=== PATIENT | male | born 1945 | race Two or more races ===

== ENCOUNTER 2023-03-26 17:52 | Inpatient (IN) | payer MEDICARE, OTHER ==
[~2023-03-26] VITALS: Ht 170.2 cm; Wt 84.4 kg
[2023-03-26] MEDS ORDERED: IPRATROPIUM BROMIDE (0.02%) 0.5MG/2.5ML NEB HHN STA (17:57)
[2023-03-26] MEDS ORDERED: METHYLPREDNISOLONE SOD SUCC 125MG/2ML (ACT-O-VIAL) IV STA (17:57)
[2023-03-26] MEDS ORDERED: ALBUTEROL (0.083%) 2.5MG/3ML NEB HHN STA (17:57)
[2023-03-26] MEDS ORDERED: ASPIRIN 81MG TABLET PO ONE (18:00)
[2023-03-26 18:15] VITALS: RESP 20
[2023-03-26 18:18] LABS: HEMATOCRIT. 34.2 % (42.0-52.0); HEMOGLOBIN. 11.2 g/dL (14.0-18.0); MEAN CORPUSCULAR VOLUME 88.7 fL (80.0-94.0); MEAN PLATELET VOLUME 7.4 fl (7.4-10.4); PLATELET 548 x1000/uL (130-400); RED BLOOD CELL COUNT 3.85 mill/uL (4.7-6.1); RED CELL DISTRIBUTION WIDTH 16.2 % (11.6-14.6)
[2023-03-26 18:24] LABS: CHLORIDE 94 mEq/L (98-107)
[2023-03-26 18:26] LABS: BG BASE EXCESS 2.3 mmol/L (-2.0-2.0); BG CARBOXYHEMOGLOBIN 1.4 % (0.5-1.5); BG DEOXYHEMOGLOBIN 3.6 % (0.0-5.0); BG HCO3 ACT 27.7 mmol/L (22.0-26.0); BG METHEMOGLOBIN 0.3 % (0.0-1.5); BG OXYGEN SATURATION 96.3 % (92.0-98.5); BG OXYHEMOGLOBIN 94.7 % (94.0-97.0); BG PCO2 46.3 mmHg (35.0-45.0); BG PH 7.395 (7.350-7.450); BG PO2 88.4 mmHg (75.0-100.0); BG SAMPLE SITE RIGHT BRACHIAL; BG TOTAL HEMOGLOBIN 11.8 g/dL (12.0-18.0); BG VENT MODE MASK - BIPAP
[2023-03-26 18:36] LABS: INR 1.1; PARTIAL THROMBOPLASTIN TIME 29.3 sec (23.4-31.0); PROTHROMBIN TIME 11.5 sec (9.6-11.0)
[2023-03-26] MEDS ORDERED: VANCOMYCIN 1G PREMIX 200 ML IV ONE (19:00)
[2023-03-26] MEDS ORDERED: PIPERACILLIN/TAZ 3.375G PREMIX 50 ML IV ONE (19:00)
[2023-03-26] MEDS ORDERED: SODIUM CHLORIDE 0.9% 1000ML BAG (SEPSIS BOLUS) IV ONE (19:00)
[2023-03-26 20:12] VITALS: RESP 26
[2023-03-26 20:50] LABS: PLATELET ESTIMATE INCREASED
[2023-03-26 22:18] VITALS: RESP 31
[2023-03-26 22:25] VITALS: BP 120/77; PULSE 79; RESP 48; TEMP 97.4
[2023-03-26 22:30] VITALS: BP 120/77; PULSE 89; RESP 22; TEMP 97.9
[2023-03-27] VITALS (17 sets, daily range): BP systolic 99–125; BP diastolic 50–67; PULSE 61–82; RESP 18–27; TEMP 97.2–97.9
[2023-03-27] MEDS: SODIUM CHLORIDE 0.9% 1,000 ML IV SCH ×2 (01:16→13:32)
[2023-03-27] MEDS ORDERED: METHYLPREDNISOLONE SOD SUCC 40MG VIAL IV SCH ×3 (01:30→11:00)
[2023-03-27] MEDS: IPRATROPIUM/ALBUTEROL 0.5-3(2.5)MG/3ML NEB HHN SCH ×4 (04:26→20:09)
[2023-03-27 05:23] LABS: CHLORIDE 96 mEq/L (98-107)
[2023-03-27 05:48] LABS: HEMATOCRIT. 30.1 % (42.0-52.0); HEMOGLOBIN. 10.4 g/dL (14.0-18.0); MEAN CORPUSCULAR HEMOGLOBIN 30.5 pg (28.0-32.0); MEAN CORPUSCULAR VOLUME 88.7 fL (80.0-94.0); MEAN PLATELET VOLUME 7.5 fl (7.4-10.4); PLATELET 494 x1000/uL (130-400); RED CELL DISTRIBUTION WIDTH 15.9 % (11.6-14.6)
[2023-03-27 05:49] LABS: HEPATITIS B SURFACE ANTIGEN NEGATIVE
[2023-03-27] MEDS: PANTOPRAZOLE SODIUM 40 MG/VIAL IV SCH (09:15)
[2023-03-27] MEDS: ENOXAPARIN 40MG/0.4ML SYR SUBCUT SCH (09:16)
[2023-03-27 09:30] LABS: BG BASE EXCESS 1.5 mmol/L (-2.0-2.0); BG CARBOXYHEMOGLOBIN 1.5 % (0.5-1.5); BG DEOXYHEMOGLOBIN 3.8 % (0.0-5.0); BG FRACTION INSPIRED OXYGEN 50; BG HCO3 ACT 25.6 mmol/L (22.0-26.0); BG METHEMOGLOBIN 0.3 % (0.0-1.5); BG OXYGEN SATURATION 96.1 % (92.0-98.5); BG OXYHEMOGLOBIN 94.4 % (94.0-97.0); BG PCO2 38.3 mmHg (35.0-45.0); BG PH 7.443 (7.350-7.450); BG PO2 83.4 mmHg (75.0-100.0); BG SAMPLE SITE RIGHT BRACHIAL; BG TOTAL HEMOGLOBIN 10.7 g/dL (12.0-18.0); BG VENT MODE MASK - BIPAP
[2023-03-27] MEDS ORDERED: ONDANSETRON HCL 4MG/2ML INJ IV PRN (10:30)
[2023-03-27] MEDS ORDERED: DEXTROSE 50% WATER 50ML SYRINGE IV PRN (10:30)
[2023-03-27] MEDS ORDERED: IPRATROPIUM/ALBUTEROL 0.5-3(2.5)MG/3ML NEB HHN PRN (10:30)
[2023-03-27] MEDS ORDERED: ACETAMINOPHEN 325MG TABLET PO PRN ×2 (10:30)
[2023-03-27] MEDS ORDERED: DOCUSATE SODIUM 100MG CAPSULE PO PRN (10:30)
[2023-03-27] MEDS: AZITHROMYCIN 500 MG in DEXT 5% WATER 250 ML IV SCH (11:58)
[2023-03-27] MEDS: BLOOD SUGAR DIAGNOSTIC STRIP TEST SCH ×3 (12:26→20:43)
[2023-03-27] MEDS: INSULIN LISPRO 100 UNITS/ML SUBCUT SCH ×3 (12:29→21:37)
[2023-03-27] MEDS: METHYLPREDNISOLONE SOD SUCC 40MG VIAL IV SCH ×2 (13:32→21:37)
[2023-03-28] VITALS (14 sets, daily range): BP systolic 109–134; BP diastolic 54–63; PULSE 60–92; RESP 17–26; TEMP 97.4–98.4
[2023-03-28 01:42] LABS: CREATINE KINASE 9 IU/L (39-308); CREATINE KINASE MB FRACTION < 1.0 ng/mL (0.5-3.6)
[2023-03-28 01:59] LABS: PLATELET ESTIMATE NORMAL
[2023-03-28] MEDS: IPRATROPIUM/ALBUTEROL 0.5-3(2.5)MG/3ML NEB HHN SCH ×4 (02:08→20:52)
[2023-03-28] MEDS: SODIUM CHLORIDE 0.9% 1,000 ML IV SCH ×2 (02:48→16:49)
[2023-03-28] MEDS: METHYLPREDNISOLONE SOD SUCC 40MG VIAL IV SCH ×3 (04:47→21:21)
[2023-03-28] MEDS: BLOOD SUGAR DIAGNOSTIC STRIP TEST SCH ×4 (07:30→21:00)
[2023-03-28] MEDS: INSULIN LISPRO 100 UNITS/ML SUBCUT SCH ×4 (08:00→21:33)
[2023-03-28] MEDS: PANTOPRAZOLE SODIUM 40 MG/VIAL IV SCH (08:52)
[2023-03-28] MEDS: ENOXAPARIN 40MG/0.4ML SYR SUBCUT SCH (08:52)
[2023-03-28 10:24] LABS: BG BASE EXCESS 1.5 mmol/L (-2.0-2.0); BG DEOXYHEMOGLOBIN 9.7 % (0.0-5.0); BG FRACTION INSPIRED OXYGEN 50; BG HCO3 ACT 25.1 mmol/L (22.0-26.0); BG METHEMOGLOBIN 0.3 % (0.0-1.5); BG OXYGEN SATURATION 90.2 % (92.0-98.5); BG PCO2 35.9 mmHg (35.0-45.0); BG PH 7.463 (7.350-7.450); BG PO2 58.7 mmHg (75.0-100.0); BG SAMPLE SITE LEFT RADIAL; BG TOTAL HEMOGLOBIN 11.3 g/dL (12.0-18.0); BG TOTAL RESPIRATORY RATE 18 b/min; BG VENT MODE MASK - BIPAP
[2023-03-28] MEDS: AZITHROMYCIN 500 MG in DEXT 5% WATER 250 ML IV SCH (11:30)
[2023-03-28 12:12] LABS: HEMATOCRIT. 33.7 % (42.0-52.0); HEMOGLOBIN. 10.8 g/dL (14.0-18.0); MEAN CORPUSCULAR HEMOGLOBIN 28.9 pg (28.0-32.0); MEAN CORPUSCULAR VOLUME 90.1 fL (80.0-94.0); MEAN PLATELET VOLUME 7.6 fl (7.4-10.4); PLATELET 628 x1000/uL (130-400); RED BLOOD CELL COUNT 3.74 mill/uL (4.7-6.1); RED CELL DISTRIBUTION WIDTH 16.5 % (11.6-14.6)
[2023-03-28 12:23] LABS: CHLORIDE 101 mEq/L (98-107)
[2023-03-28 15:28] LABS: PLATELET ESTIMATE INCREASED
[2023-03-29] VITALS (17 sets, daily range): BP systolic 114–136; BP diastolic 58–69; PULSE 58–70; RESP 18–28; TEMP 98–98.4; O2SAT 91
[2023-03-29] MEDS: IPRATROPIUM/ALBUTEROL 0.5-3(2.5)MG/3ML NEB HHN SCH ×4 (01:27→20:46)
[2023-03-29] MEDS: METHYLPREDNISOLONE SOD SUCC 40MG VIAL IV SCH ×3 (06:16→23:07)
[2023-03-29] MEDS: SODIUM CHLORIDE 0.9% 1,000 ML IV SCH ×2 (06:17→23:05)
[2023-03-29] MEDS: BLOOD SUGAR DIAGNOSTIC STRIP TEST SCH ×4 (07:30→21:00)
[2023-03-29] MEDS: INSULIN LISPRO 100 UNITS/ML SUBCUT SCH ×4 (08:00→23:36)
[2023-03-29 08:51] LABS: BG BASE EXCESS 2.5 mmol/L (-2.0-2.0); BG CARBOXYHEMOGLOBIN 0.3 % (0.5-1.5); BG DEOXYHEMOGLOBIN 4.3 % (0.0-5.0); BG FRACTION INSPIRED OXYGEN 50; BG HCO3 ACT 26.2 mmol/L (22.0-26.0); BG METHEMOGLOBIN 0.2 % (0.0-1.5); BG OXYGEN SATURATION 95.7 % (92.0-98.5); BG OXYHEMOGLOBIN 95.2 % (94.0-97.0); BG PCO2 37.3 mmHg (35.0-45.0); BG PH 7.465 (7.350-7.450); BG SAMPLE SITE RIGHT BRACHIAL; BG TOTAL HEMOGLOBIN 10.8 g/dL (12.0-18.0); BG TOTAL RESPIRATORY RATE 21 b/min; BG VENT MODE MASK - BIPAP
[2023-03-29] MEDS: PANTOPRAZOLE SODIUM 40 MG/VIAL IV SCH (09:05)
[2023-03-29] MEDS: ENOXAPARIN 40MG/0.4ML SYR SUBCUT SCH (09:05)
[2023-03-29 13:06] LABS: HEMATOCRIT. 30.7 % (42.0-52.0); MEAN CORPUSCULAR HEMOGLOBIN 28.6 pg (28.0-32.0); MEAN CORPUSCULAR VOLUME 87.8 fL (80.0-94.0); MEAN PLATELET VOLUME 7.5 fl (7.4-10.4); PLATELET 590 x1000/uL (130-400); RED CELL DISTRIBUTION WIDTH 16.3 % (11.6-14.6)
[2023-03-29 13:15] LABS: CHLORIDE 100 mEq/L (98-107)
[2023-03-29] MEDS: AZITHROMYCIN 500 MG in DEXT 5% WATER 250 ML IV SCH (16:44)
[2023-03-30] VITALS (22 sets, daily range): BP systolic 111–160; BP diastolic 49–75; PULSE 60–99; RESP 17–28; TEMP 97.7–98.3; O2SAT 91–94
[2023-03-30] MEDS: IPRATROPIUM/ALBUTEROL 0.5-3(2.5)MG/3ML NEB HHN SCH ×4 (02:31→19:59)
[2023-03-30] MEDS: METHYLPREDNISOLONE SOD SUCC 40MG VIAL IV SCH ×3 (07:17→22:13)
[2023-03-30] MEDS: BLOOD SUGAR DIAGNOSTIC STRIP TEST SCH ×4 (07:30→21:00)
[2023-03-30] MEDS: INSULIN LISPRO 100 UNITS/ML SUBCUT SCH ×5 (08:00→22:22)
[2023-03-30] MEDS: FAMOTIDINE 20MG/2ML VIAL IV SCH ×2 (09:28→22:11)
[2023-03-30] MEDS: ENOXAPARIN 40MG/0.4ML SYR SUBCUT SCH (09:28)
[2023-03-30] MEDS: SODIUM CHLORIDE 0.9% 1,000 ML IV SCH ×2 (09:33→22:14)
[2023-03-30] MEDS: AZITHROMYCIN 500 MG in DEXT 5% WATER 250 ML IV SCH (09:33)
[2023-03-30 10:38] LABS: PLATELET ESTIMATE INCREASED
[2023-03-31] VITALS (80 sets, daily range): BP systolic 58–149; BP diastolic 40–92; PULSE 66–135; RESP 13–47; TEMP 97.4–99.8; O2SAT 93
[2023-03-31] MEDS: IPRATROPIUM/ALBUTEROL 0.5-3(2.5)MG/3ML NEB HHN SCH ×4 (01:51→20:30)
[2023-03-31] MEDS: METHYLPREDNISOLONE SOD SUCC 40MG VIAL IV SCH ×3 (06:00→21:34)
[2023-03-31] MEDS ORDERED: HALOPERIDOL LACTATE 5MG/ML VIAL IM NR (06:15)
[2023-03-31 06:32] LABS: BG BASE EXCESS -7.3 mmol/L (-2.0-2.0); BG CARBOXYHEMOGLOBIN 1.1 % (0.5-1.5); BG DEOXYHEMOGLOBIN 21.5 % (0.0-5.0); BG FRACTION INSPIRED OXYGEN 10102; BG HCO3 ACT 26.9 mmol/L (22.0-26.0); BG METHEMOGLOBIN 0.3 % (0.0-1.5); BG OXYGEN SATURATION 78.2 % (92.0-98.5); BG OXYHEMOGLOBIN 77.1 % (94.0-97.0); BG PCO2 119.6 mmHg (35.0-45.0); BG PO2 66.8 mmHg (75.0-100.0); BG TOTAL HEMOGLOBIN 12.4 g/dL (12.0-18.0); BG VENT MODE MASK - BIPAP
[2023-03-31] MEDS: BLOOD SUGAR DIAGNOSTIC STRIP TEST SCH ×4 (07:46→21:32)
[2023-03-31] MEDS: INSULIN LISPRO 100 UNITS/ML SUBCUT SCH ×4 (07:59→21:31)
[2023-03-31 09:39] LABS: BG BASE EXCESS -4.5 mmol/L (-2.0-2.0); BG DEOXYHEMOGLOBIN 16.7 % (0.0-5.0); BG FRACTION INSPIRED OXYGEN 100; BG HCO3 ACT 26.6 mmol/L (22.0-26.0); BG METHEMOGLOBIN 0.3 % (0.0-1.5); BG OXYGEN SATURATION 83.1 % (92.0-98.5); BG PH 7.093 (7.350-7.450); BG SAMPLE SITE RIGHT BRACHIAL; BG TOTAL HEMOGLOBIN 10.6 g/dL (12.0-18.0); BG VENT MODE MASK - BIPAP
[2023-03-31] MEDS: PHENYLEPHRINE 100 MG in DEXT 5% WATER 240 ML IV PRN ×2 (10:39→21:02)
[2023-03-31] MEDS: FAMOTIDINE 20MG/2ML VIAL IV SCH ×2 (11:01→21:19)
[2023-03-31] MEDS: SODIUM CHLORIDE 0.9% 1,000 ML IV SCH (11:02)
[2023-03-31] MEDS: ENOXAPARIN 40MG/0.4ML SYR SUBCUT SCH (11:02)
[2023-03-31 12:07] LABS: BG BASE EXCESS -2.1 mmol/L (-2.0-2.0); BG CARBOXYHEMOGLOBIN 0.9 % (0.5-1.5); BG DEOXYHEMOGLOBIN 11.1 % (0.0-5.0); BG FRACTION INSPIRED OXYGEN 100; BG HCO3 ACT 28.8 mmol/L (22.0-26.0); BG METHEMOGLOBIN 0.1 % (0.0-1.5); BG OXYGEN SATURATION 88.8 % (92.0-98.5); BG OXYHEMOGLOBIN 87.9 % (94.0-97.0); BG PCO2 84.7 mmHg (35.0-45.0); BG PO2 69.8 mmHg (75.0-100.0); BG SAMPLE SITE RIGHT BRACHIAL; BG TOTAL HEMOGLOBIN 13.2 g/dL (12.0-18.0); BG VENT MODE VENT - AC
[2023-03-31 12:11] LABS: MEAN CORPUSCULAR HEMOGLOBIN 28.3 pg (28.0-32.0); MEAN CORPUSCULAR VOLUME 90.4 fL (80.0-94.0); MEAN PLATELET VOLUME 6.9 fl (7.4-10.4); PLATELET 761 x1000/uL (130-400); RED BLOOD CELL COUNT 4.15 mill/uL (4.7-6.1); RED CELL DISTRIBUTION WIDTH 16.6 % (11.6-14.6)
[2023-03-31 12:17] LABS: CHLORIDE 101 mEq/L (98-107)
[2023-03-31 12:19] LABS: HEMATOCRIT. 37.6 % (42.0-52.0); HEMOGLOBIN. 11.7 g/dL (14.0-18.0)
[2023-03-31] MEDS ORDERED: SULFAMETHOXAZOLE/TRIMETHOPRIM 800/160MG TABLET PO SCH (13:00)
[2023-03-31] MEDS: AZITHROMYCIN 500 MG in DEXT 5% WATER 250 ML IV SCH (13:10)
[2023-03-31 14:11] LABS: PLATELET ESTIMATE MARKEDLY INCREASED
[2023-03-31] MEDS: SODIUM BICARBONATE 100 MEQ in SODIUM CHLORIDE 0.9% 1,000 ML IV SCH (15:03)
[2023-03-31 16:00] LABS: BG BASE EXCESS -11.2 mmol/L (-2.0-2.0); BG CARBOXYHEMOGLOBIN 1.5 % (0.5-1.5); BG DEOXYHEMOGLOBIN 18.3 % (0.0-5.0); BG FRACTION INSPIRED OXYGEN 100; BG HCO3 ACT 16.2 mmol/L (22.0-26.0); BG METHEMOGLOBIN 0.3 % (0.0-1.5); BG OXYGEN SATURATION 81.4 % (92.0-98.5); BG OXYHEMOGLOBIN 79.9 % (94.0-97.0); BG PCO2 41.9 mmHg (35.0-45.0); BG PH 7.205 (7.350-7.450); BG PO2 51.1 mmHg (75.0-100.0); BG SAMPLE SITE RIGHT BRACHIAL; BG TOTAL HEMOGLOBIN 13.4 g/dL (12.0-18.0); BG VENT MODE VENT - AC
[2023-03-31] MEDS ORDERED: FUROSEMIDE 20MG/2ML VIAL IVP NR (16:00)
[2023-03-31] MEDS: MEROPENEM 500 MG in SODIUM CHLORIDE 0.9% 50 ML IV SCH (17:04)
[2023-03-31] MEDS ORDERED: VANCOMYCIN 1500MG in DEXTROSE 5% WATER 250ML IV NR (18:00)
[2023-03-31] MEDS: INSULIN GLARGINE 100 UNITS/ML SUBCUT SCH (21:32)
[2023-04-01] VITALS (99 sets, daily range): BP systolic 79–145; BP diastolic 23–85; PULSE 72–95; RESP 13–45; TEMP 97.6–98
[2023-04-01] MEDS: IPRATROPIUM/ALBUTEROL 0.5-3(2.5)MG/3ML NEB HHN SCH ×5 (01:30→21:12)
[2023-04-01] MEDS: MEROPENEM 500 MG in SODIUM CHLORIDE 0.9% 50 ML IV SCH (02:02)
[2023-04-01] MEDS: SODIUM BICARBONATE 100 MEQ in SODIUM CHLORIDE 0.9% 1,000 ML IV SCH ×2 (02:29→12:19)
[2023-04-01] MEDS: PHENYLEPHRINE 100 MG in DEXT 5% WATER 240 ML IV PRN ×2 (03:51→11:46)
[2023-04-01] MEDS: METHYLPREDNISOLONE SOD SUCC 40MG VIAL IV SCH ×3 (06:00→22:05)
[2023-04-01] MEDS: BLOOD SUGAR DIAGNOSTIC STRIP TEST SCH ×4 (06:30→21:56)
[2023-04-01] MEDS: INSULIN LISPRO 100 UNITS/ML SUBCUT SCH ×4 (07:08→21:56)
[2023-04-01 07:58] LABS: BG BASE EXCESS -4.5 mmol/L (-2.0-2.0); BG CARBOXYHEMOGLOBIN 1.4 % (0.5-1.5); BG DEOXYHEMOGLOBIN 4.1 % (0.0-5.0); BG FRACTION INSPIRED OXYGEN 100; BG HCO3 ACT 22.7 mmol/L (22.0-26.0); BG METHEMOGLOBIN 0.3 % (0.0-1.5); BG OXYGEN SATURATION 95.8 % (92.0-98.5); BG OXYHEMOGLOBIN 94.2 % (94.0-97.0); BG PCO2 50.7 mmHg (35.0-45.0); BG PH 7.269 (7.350-7.450); BG PO2 87.7 mmHg (75.0-100.0); BG SAMPLE SITE LEFT BRACHIAL; BG TOTAL HEMOGLOBIN 12.2 g/dL (12.0-18.0); BG VENT MODE VENT - AC
[2023-04-01] MEDS: ENOXAPARIN 40MG/0.4ML SYR SUBCUT SCH (09:23)
[2023-04-01] MEDS: FAMOTIDINE 20MG/2ML VIAL IV SCH ×2 (09:23→20:38)
[2023-04-01] MEDS: INSULIN GLARGINE 100 UNITS/ML SUBCUT SCH ×2 (09:26→22:09)
[2023-04-01] MEDS ORDERED: MEROPENEM 1000MG in NORMAL SALINE 100ML IV SCH (10:00)
[2023-04-01 10:20] LABS: HEMATOCRIT 35.4 % (42.0-52.0); HEMOGLOBIN 11.2 g/dL (14.0-18.0); MEAN CORPUSCULAR HEMOGLOBIN 28.4 pg (28.0-32.0); MEAN CORPUSCULAR VOLUME 89.9 fL (80.0-94.0); PLATELET 538 x1000/uL (130-400); RED BLOOD CELL COUNT 3.94 mill/uL (4.7-6.1); RED CELL DISTRIBUTION WIDTH 16.5 % (11.6-14.6)
[2023-04-01] MEDS ORDERED: VANCOMYCIN 1.25GM PMX (XELLIA) 250 ML IV SCH (12:00)
[2023-04-01] MEDS ORDERED: VANCOMYCIN 1G PREMIX 200 ML IV SCH (12:00)
[2023-04-01] MEDS ORDERED: SODIUM POLYSTYRENE SULFONATE 15 G/60 ML BOT PO NR (12:00)
[2023-04-01] MEDS ORDERED: SODIUM POLYSTYRENE SULFONATE 15 G/60 ML BOT PO ONE (12:00)
[2023-04-01] MEDS: ACETYLCYSTEINE 200MG/ML 20% VIAL 4ML INH SCH ×2 (15:29→22:07)
[2023-04-01 18:33] LABS: CLARITY URINE TURBID (CLEAR); COLOR URINE DARK YELLOW (YELLOW); KETONES URINE TRACE (NEGATIVE); LEUKOCYTE ESTERASE URINE 2+ (NEGATIVE); NITRITE URINE NEGATIVE (NEGATIVE); OCCULT BLOOD URINE 3+ (NEGATIVE); PROTEIN URINE 1+ (NEGATIVE); SPECIFIC GRAVITY URINE 1.016 (1.005-1.030)
[2023-04-01] MEDS: MEROPENEM 1000MG in NORMAL SALINE 100ML IV SCH (20:37)
[2023-04-02] VITALS (106 sets, daily range): BP systolic 81–176; BP diastolic 52–91; PULSE 64–107; RESP 5–36; TEMP 97.4–98.4
[2023-04-02] MEDS: SODIUM BICARBONATE 100 MEQ in SODIUM CHLORIDE 0.9% 1,000 ML IV SCH ×3 (00:45→22:27)
[2023-04-02] MEDS: IPRATROPIUM/ALBUTEROL 0.5-3(2.5)MG/3ML NEB HHN SCH ×4 (01:22→19:44)
[2023-04-02] MEDS: ACETYLCYSTEINE 200MG/ML 20% VIAL 4ML INH SCH ×2 (01:25→08:16)
[2023-04-02] MEDS: METHYLPREDNISOLONE SOD SUCC 40MG VIAL IV SCH ×3 (05:21→22:26)
[2023-04-02] MEDS: INSULIN LISPRO 100 UNITS/ML SUBCUT SCH ×4 (05:22→21:02)
[2023-04-02 05:40] LABS: HEMATOCRIT. 31.2 % (42.0-52.0); HEMOGLOBIN. 9.9 g/dL (14.0-18.0); MEAN CORPUSCULAR HEMOGLOBIN 28.2 pg (28.0-32.0); MEAN CORPUSCULAR VOLUME 88.7 fL (80.0-94.0); MEAN PLATELET VOLUME 7.4 fl (7.4-10.4); PLATELET 348 x1000/uL (130-400); RED BLOOD CELL COUNT 3.52 mill/uL (4.7-6.1); RED CELL DISTRIBUTION WIDTH 16.6 % (11.6-14.6)
[2023-04-02 05:50] LABS: VANCOMYCIN TROUGH 23.5 ug/mL (5.0-10.0)
[2023-04-02] MEDS: BLOOD SUGAR DIAGNOSTIC STRIP TEST SCH ×4 (06:30→21:02)
[2023-04-02] MEDS: FAMOTIDINE 20MG/2ML VIAL IV SCH (08:43)
[2023-04-02] MEDS: ENOXAPARIN 40MG/0.4ML SYR SUBCUT SCH (08:43)
[2023-04-02] MEDS: MEROPENEM 1000MG in NORMAL SALINE 100ML IV SCH ×2 (08:43→20:59)
[2023-04-02 08:51] LABS: BG BASE EXCESS 2.7 mmol/L (-2.0-2.0); BG CARBOXYHEMOGLOBIN 0.7 % (0.5-1.5); BG DEOXYHEMOGLOBIN 0.8 % (0.0-5.0); BG FRACTION INSPIRED OXYGEN 100; BG HCO3 ACT 26.2 mmol/L (22.0-26.0); BG METHEMOGLOBIN 0.3 % (0.0-1.5); BG OXYGEN SATURATION 99.2 % (92.0-98.5); BG OXYHEMOGLOBIN 98.2 % (94.0-97.0); BG PCO2 36.5 mmHg (35.0-45.0); BG PH 7.474 (7.350-7.450); BG PO2 199.5 mmHg (75.0-100.0); BG SAMPLE SITE RIGHT BRACHIAL; BG TOTAL HEMOGLOBIN 11.1 g/dL (12.0-18.0); BG VENT MODE VENT - AC
[2023-04-02 09:44] LABS: PLATELET ESTIMATE NORMAL
[2023-04-02] MEDS: INSULIN GLARGINE 100 UNITS/ML SUBCUT SCH ×2 (09:54→22:25)
[2023-04-02] MEDS: LORAZEPAM 2MG/ML CPJ IV PRN (14:54)
[2023-04-02] MEDS: PHENYLEPHRINE 100 MG in DEXT 5% WATER 240 ML IV PRN (23:16)
[2023-04-03] VITALS (101 sets, daily range): BP systolic 93–181; BP diastolic 56–106; PULSE 65–139; RESP 7–34; TEMP 97.8–98.7
[2023-04-03] MEDS: ACETYLCYSTEINE 100MG/ML 10% VIAL 4ML INH SCH ×4 (01:06→20:20)
[2023-04-03] MEDS: IPRATROPIUM/ALBUTEROL 0.5-3(2.5)MG/3ML NEB HHN SCH ×4 (01:07→20:19)
[2023-04-03] MEDS: BLOOD SUGAR DIAGNOSTIC STRIP TEST SCH ×4 (06:35→20:30)
[2023-04-03] MEDS: METHYLPREDNISOLONE SOD SUCC 40MG VIAL IV SCH ×3 (06:36→22:13)
[2023-04-03] MEDS: ENOXAPARIN 40MG/0.4ML SYR SUBCUT SCH (08:59)
[2023-04-03] MEDS: INSULIN LISPRO 100 UNITS/ML SUBCUT SCH ×4 (09:00→20:31)
[2023-04-03] MEDS: SODIUM BICARBONATE 100 MEQ in SODIUM CHLORIDE 0.9% 1,000 ML IV SCH ×2 (09:05→20:30)
[2023-04-03] MEDS: MEROPENEM 1000MG in NORMAL SALINE 100ML IV SCH ×2 (09:34→20:30)
[2023-04-03 09:43] LABS: HEMOGLOBIN. 10.2 g/dL (14.0-18.0); MEAN CORPUSCULAR HEMOGLOBIN 28.8 pg (28.0-32.0); MEAN CORPUSCULAR VOLUME 87.5 fL (80.0-94.0); MEAN PLATELET VOLUME 7.6 fl (7.4-10.4); PLATELET 338 x1000/uL (130-400); RED BLOOD CELL COUNT 3.54 mill/uL (4.7-6.1); RED CELL DISTRIBUTION WIDTH 16.2 % (11.6-14.6)
[2023-04-03] MEDS: INSULIN GLARGINE 100 UNITS/ML SUBCUT SCH ×2 (10:41→22:14)
[2023-04-03 10:56] LABS: BG BASE EXCESS 9.2 mmol/L (-2.0-2.0); BG CARBOXYHEMOGLOBIN 0.2 % (0.5-1.5); BG DEOXYHEMOGLOBIN 2.5 % (0.0-5.0); BG FRACTION INSPIRED OXYGEN 60; BG HCO3 ACT 32.6 mmol/L (22.0-26.0); BG METHEMOGLOBIN 0.3 % (0.0-1.5); BG OXYGEN SATURATION 97.5 % (92.0-98.5); BG PCO2 39.4 mmHg (35.0-45.0); BG PH 7.535 (7.350-7.450); BG PO2 100.1 mmHg (75.0-100.0); BG SAMPLE SITE RIGHT RADIAL; BG VENT MODE VENT - AC
[2023-04-03] MEDS ORDERED: VANCOMYCIN 750MG PREMIX 150 ML IV SCH (11:00)
[2023-04-03 11:43] LABS: PLATELET ESTIMATE NORMAL
[2023-04-03] MEDS ORDERED: LIDOCAINE HCL 1% 10 MG/ML 10ML VIAL ONE (13:20)
[2023-04-03 15:24] LABS: BG BASE EXCESS 5.3 mmol/L (-2.0-2.0); BG DEOXYHEMOGLOBIN 3.7 % (0.0-5.0); BG FRACTION INSPIRED OXYGEN 50; BG HCO3 ACT 31.8 mmol/L (22.0-26.0); BG METHEMOGLOBIN 0.3 % (0.0-1.5); BG OXYGEN SATURATION 96.3 % (92.0-98.5); BG PCO2 55.4 mmHg (35.0-45.0); BG PH 7.377 (7.350-7.450); BG PO2 93.3 mmHg (75.0-100.0); BG SAMPLE SITE RIGHT RADIAL; BG TOTAL HEMOGLOBIN 12.2 g/dL (12.0-18.0); BG VENT MODE VENT - AC
[2023-04-03] MEDS: LORAZEPAM 2MG/ML CPJ IV PRN (16:03)
[2023-04-03] MEDS ORDERED: DILTIAZEM HCL 5MG/ML 5ML VIAL IV NR (16:45)
[2023-04-03 17:27] LABS: BG BASE EXCESS 3.9 mmol/L (-2.0-2.0); BG CARBOXYHEMOGLOBIN 0.7 % (0.5-1.5); BG DEOXYHEMOGLOBIN 7.3 % (0.0-5.0); BG FRACTION INSPIRED OXYGEN 50; BG HCO3 ACT 31.4 mmol/L (22.0-26.0); BG METHEMOGLOBIN 0.3 % (0.0-1.5); BG OXYGEN SATURATION 92.6 % (92.0-98.5); BG OXYHEMOGLOBIN 91.7 % (94.0-97.0); BG PCO2 61.8 mmHg (35.0-45.0); BG PH 7.324 (7.350-7.450); BG SAMPLE SITE RIGHT RADIAL; BG TOTAL HEMOGLOBIN 12.2 g/dL (12.0-18.0); BG VENT MODE VENT - AC
[2023-04-04] VITALS (89 sets, daily range): BP systolic 127–165; BP diastolic 67–96; PULSE 69–99; RESP 17–33; TEMP 97–98
[2023-04-04] MEDS: BLOOD SUGAR DIAGNOSTIC STRIP TEST SCH ×4 (06:01→21:30)
[2023-04-04] MEDS: SODIUM BICARBONATE 100 MEQ in SODIUM CHLORIDE 0.9% 1,000 ML IV SCH ×2 (06:01→18:05)
[2023-04-04] MEDS: INSULIN LISPRO 100 UNITS/ML SUBCUT SCH ×4 (06:04→21:32)
[2023-04-04] MEDS: METHYLPREDNISOLONE SOD SUCC 40MG VIAL IV SCH ×3 (06:05→21:30)
[2023-04-04 06:54] LABS: HEMATOCRIT. 33.9 % (42.0-52.0); HEMOGLOBIN. 11.1 g/dL (14.0-18.0); MEAN CORPUSCULAR HEMOGLOBIN 29.2 pg (28.0-32.0); MEAN CORPUSCULAR VOLUME 89.6 fL (80.0-94.0); MEAN PLATELET VOLUME 8.1 fl (7.4-10.4); PLATELET 287 x1000/uL (130-400); RED BLOOD CELL COUNT 3.78 mill/uL (4.7-6.1)
[2023-04-04] MEDS: ACETYLCYSTEINE 100MG/ML 10% VIAL 4ML INH SCH ×2 (08:43→13:26)
[2023-04-04] MEDS: IPRATROPIUM/ALBUTEROL 0.5-3(2.5)MG/3ML NEB HHN SCH ×3 (08:43→19:57)
[2023-04-04] MEDS: ENOXAPARIN 40MG/0.4ML SYR SUBCUT SCH (09:21)
[2023-04-04] MEDS: FAMOTIDINE 20MG/2ML VIAL IV SCH (09:21)
[2023-04-04] MEDS: MEROPENEM 1000MG in NORMAL SALINE 100ML IV SCH (09:21)
[2023-04-04 09:41] LABS: PLATELET ESTIMATE NORMAL
[2023-04-04 11:12] LABS: BG BASE EXCESS 13.2 mmol/L (-2.0-2.0); BG CARBOXYHEMOGLOBIN 0.1 % (0.5-1.5); BG DEOXYHEMOGLOBIN 6.3 % (0.0-5.0); BG FRACTION INSPIRED OXYGEN 50; BG HCO3 ACT 37.3 mmol/L (22.0-26.0); BG METHEMOGLOBIN 0.3 % (0.0-1.5); BG OXYGEN SATURATION 93.7 % (92.0-98.5); BG OXYHEMOGLOBIN 93.3 % (94.0-97.0); BG PCO2 45.9 mmHg (35.0-45.0); BG PH 7.528 (7.350-7.450); BG PO2 68.2 mmHg (75.0-100.0); BG SAMPLE SITE LEFT RADIAL; BG TOTAL HEMOGLOBIN 10.6 g/dL (12.0-18.0); BG TOTAL RESPIRATORY RATE 22 b/min; BG VENT MODE VENT - AC
[2023-04-04] MEDS: VANCOMYCIN 1G PREMIX 200 ML IV SCH (11:45)
[2023-04-04] MEDS: INSULIN GLARGINE 100 UNITS/ML SUBCUT SCH ×2 (11:47→21:32)
[2023-04-04] MEDS: CEFEPIME 2,000 MG in DEXT 5% WATER 100 ML IV SCH (18:05)
[2023-04-04] MEDS: LORAZEPAM 2MG/ML CPJ IV PRN (18:05)
[2023-04-05] VITALS (56 sets, daily range): BP systolic 124–180; BP diastolic 71–110; PULSE 80–123; RESP 16–43; TEMP 97.1–98
[2023-04-05] MEDS: IPRATROPIUM/ALBUTEROL 0.5-3(2.5)MG/3ML NEB HHN SCH ×4 (01:58→20:19)
[2023-04-05] MEDS: ACETYLCYSTEINE 100MG/ML 10% VIAL 4ML INH SCH ×3 (01:59→14:27)
[2023-04-05] MEDS: SODIUM BICARBONATE 100 MEQ in SODIUM CHLORIDE 0.9% 1,000 ML IV SCH ×2 (05:35→07:37)
[2023-04-05] MEDS: CEFEPIME 2,000 MG in DEXT 5% WATER 100 ML IV SCH ×2 (05:36→17:46)
[2023-04-05] MEDS: METHYLPREDNISOLONE SOD SUCC 40MG VIAL IV SCH ×3 (05:36→22:40)
[2023-04-05] MEDS: BLOOD SUGAR DIAGNOSTIC STRIP TEST SCH ×4 (05:36→21:44)
[2023-04-05 05:40] LABS: CHLORIDE 111 mEq/L (98-107)
[2023-04-05] MEDS: INSULIN LISPRO 100 UNITS/ML SUBCUT SCH ×4 (06:03→21:56)
[2023-04-05] MEDS: ENOXAPARIN 40MG/0.4ML SYR SUBCUT SCH (09:06)
[2023-04-05] MEDS: INSULIN GLARGINE 100 UNITS/ML SUBCUT SCH ×2 (09:07→21:56)
[2023-04-05 11:10] LABS: BG BASE EXCESS 16.5 mmol/L (-2.0-2.0); BG DEOXYHEMOGLOBIN 8.9 % (0.0-5.0); BG FRACTION INSPIRED OXYGEN 50; BG HCO3 ACT 42.3 mmol/L (22.0-26.0); BG METHEMOGLOBIN 0.3 % (0.0-1.5); BG OXYHEMOGLOBIN 89.8 % (94.0-97.0); BG PCO2 56.2 mmHg (35.0-45.0); BG PH 7.494 (7.350-7.450); BG PO2 60.1 mmHg (75.0-100.0); BG SAMPLE SITE RIGHT RADIAL; BG VENT MODE VENT - AC
[2023-04-05] MEDS: VANCOMYCIN 1G PREMIX 200 ML IV SCH (11:56)
[2023-04-05] MEDS ORDERED: FUROSEMIDE 40MG/4ML VIAL IVP NR (12:45)
[2023-04-05 12:54] LABS: HEMATOCRIT. 33.8 % (42.0-52.0); HEMOGLOBIN. 10.7 g/dL (14.0-18.0); MEAN CORPUSCULAR HEMOGLOBIN 28.6 pg (28.0-32.0); MEAN CORPUSCULAR VOLUME 90.4 fL (80.0-94.0); MEAN PLATELET VOLUME 8.3 fl (7.4-10.4); PLATELET 236 x1000/uL (130-400); RED BLOOD CELL COUNT 3.74 mill/uL (4.7-6.1); RED CELL DISTRIBUTION WIDTH 16.7 % (11.6-14.6)
[2023-04-05 13:04] LABS: CHLORIDE 113 mEq/L (98-107)
[2023-04-05] MEDS: HYDRALAZINE 20MG/ML VIAL IV SCH ×3 (13:05→22:50)
[2023-04-05] MEDS: LORAZEPAM 2MG/ML CPJ IV PRN (13:42)
[2023-04-05] MEDS: CLONIDINE 0.1MG TABLET PO SCH ×2 (15:55→21:32)
[2023-04-06] VITALS (88 sets, daily range): BP systolic 104–172; BP diastolic 62–113; PULSE 82–117; RESP 12–37; TEMP 97.6–98.5
[2023-04-06] MEDS: CLONIDINE 0.1MG TABLET PO PRN (00:04)
[2023-04-06] MEDS: IPRATROPIUM/ALBUTEROL 0.5-3(2.5)MG/3ML NEB HHN SCH ×5 (00:27→21:04)
[2023-04-06] MEDS: ACETYLCYSTEINE 100MG/ML 10% VIAL 4ML INH SCH ×3 (00:29→15:51)
[2023-04-06] MEDS: METHYLPREDNISOLONE SOD SUCC 40MG VIAL IV SCH ×3 (06:29→22:31)
[2023-04-06] MEDS: BLOOD SUGAR DIAGNOSTIC STRIP TEST SCH ×4 (06:30→21:54)
[2023-04-06] MEDS: CEFEPIME 2,000 MG in DEXT 5% WATER 100 ML IV SCH ×2 (06:30→17:00)
[2023-04-06] MEDS: INSULIN LISPRO 100 UNITS/ML SUBCUT SCH ×4 (06:31→21:58)
[2023-04-06] MEDS: CLONIDINE 0.1MG TABLET PO SCH ×3 (06:48→22:00)
[2023-04-06] MEDS: HYDRALAZINE 20MG/ML VIAL IV SCH ×3 (06:48→22:00)
[2023-04-06] MEDS: FAMOTIDINE 20MG/2ML VIAL IV SCH (09:38)
[2023-04-06] MEDS: ENOXAPARIN 40MG/0.4ML SYR SUBCUT SCH (09:39)
[2023-04-06] MEDS: INSULIN GLARGINE 100 UNITS/ML SUBCUT SCH ×2 (09:40→21:59)
[2023-04-06] MEDS: VANCOMYCIN 1G PREMIX 200 ML IV SCH (11:29)
[2023-04-06 12:01] LABS: BG CARBOXYHEMOGLOBIN 1.3 % (0.5-1.5); BG DEOXYHEMOGLOBIN 4.9 % (0.0-5.0); BG FRACTION INSPIRED OXYGEN 50; BG HCO3 ACT 40.4 mmol/L (22.0-26.0); BG METHEMOGLOBIN 0.3 % (0.0-1.5); BG OXYHEMOGLOBIN 93.5 % (94.0-97.0); BG PCO2 48.5 mmHg (35.0-45.0); BG PH 7.539 (7.350-7.450); BG PO2 70.2 mmHg (75.0-100.0); BG SAMPLE SITE RIGHT RADIAL; BG TOTAL HEMOGLOBIN 10.5 g/dL (12.0-18.0); BG TOTAL RESPIRATORY RATE 20 b/min; BG VENT MODE VENT - AC
[2023-04-06 12:54] LABS: PLATELET ESTIMATE NORMAL
[2023-04-06 15:39] LABS: HEMATOCRIT 31.5 % (42.0-52.0); HEMOGLOBIN 9.9 g/dL (14.0-18.0); MEAN CORPUSCULAR HEMOGLOBIN 28.9 pg (28.0-32.0); MEAN CORPUSCULAR VOLUME 91.6 fL (80.0-94.0); PLATELET 165 x1000/uL (130-400); RED BLOOD CELL COUNT 3.44 mill/uL (4.7-6.1); RED CELL DISTRIBUTION WIDTH 17.2 % (11.6-14.6)
[2023-04-06 15:47] LABS: CHLORIDE 113 mEq/L (98-107)
[2023-04-06] MEDS: FUROSEMIDE 40MG/4ML VIAL IVP SCH (18:18)
[2023-04-06] MEDS: DOCUSATE SODIUM SUGAR FREE 100MG/10ML UDC PO PRN (22:55)
[2023-04-07] VITALS (98 sets, daily range): BP systolic 93–178; BP diastolic 57–109; PULSE 91–126; RESP 14–38; TEMP 97.6–98.6
[2023-04-07] MEDS: LORAZEPAM 2MG/ML CPJ IV PRN ×2 (00:19→12:28)
[2023-04-07] MEDS: CLONIDINE 0.1MG TABLET PO PRN (00:34)
[2023-04-07] MEDS: IPRATROPIUM/ALBUTEROL 0.5-3(2.5)MG/3ML NEB HHN SCH ×4 (01:36→20:12)
[2023-04-07] MEDS ORDERED: LORAZEPAM 2MG/ML CPJ IV NR (02:45)
[2023-04-07] MEDS: BLOOD SUGAR DIAGNOSTIC STRIP TEST SCH ×4 (05:34→21:49)
[2023-04-07] MEDS: CEFEPIME 2,000 MG in DEXT 5% WATER 100 ML IV SCH ×2 (05:34→17:47)
[2023-04-07] MEDS: METHYLPREDNISOLONE SOD SUCC 40MG VIAL IV SCH ×3 (05:34→22:51)
[2023-04-07] MEDS: CLONIDINE 0.1MG TABLET PO SCH ×3 (05:58→22:28)
[2023-04-07] MEDS: HYDRALAZINE 20MG/ML VIAL IV SCH ×3 (05:59→21:15)
[2023-04-07 06:01] LABS: HEMOGLOBIN. 10.4 g/dL (14.0-18.0); MEAN CORPUSCULAR HEMOGLOBIN 28.4 pg (28.0-32.0); MEAN CORPUSCULAR VOLUME 90.5 fL (80.0-94.0); MEAN PLATELET VOLUME 9.1 fl (7.4-10.4); PLATELET 144 x1000/uL (130-400); RED BLOOD CELL COUNT 3.65 mill/uL (4.7-6.1)
[2023-04-07] MEDS: INSULIN LISPRO 100 UNITS/ML SUBCUT SCH ×4 (06:01→21:49)
[2023-04-07 06:16] LABS: CHLORIDE 112 mEq/L (98-107)
[2023-04-07] MEDS: FUROSEMIDE 40MG/4ML VIAL IVP SCH (08:22)
[2023-04-07] MEDS: ENOXAPARIN 40MG/0.4ML SYR SUBCUT SCH (08:23)
[2023-04-07 08:59] LABS: BG BASE EXCESS 15.1 mmol/L (-2.0-2.0); BG DEOXYHEMOGLOBIN 6.9 % (0.0-5.0); BG FRACTION INSPIRED OXYGEN 50; BG HCO3 ACT 40.1 mmol/L (22.0-26.0); BG METHEMOGLOBIN 0.3 % (0.0-1.5); BG OXYHEMOGLOBIN 91.8 % (94.0-97.0); BG PCO2 50.9 mmHg (35.0-45.0); BG PH 7.514 (7.350-7.450); BG PO2 65.3 mmHg (75.0-100.0); BG SAMPLE SITE RIGHT RADIAL; BG TOTAL HEMOGLOBIN 11.7 g/dL (12.0-18.0); BG TOTAL RESPIRATORY RATE 28 b/min; BG VENT MODE VENT - AC
[2023-04-07 09:53] LABS: PLATELET ESTIMATE NORMAL
[2023-04-07] MEDS: VANCOMYCIN 1G PREMIX 200 ML IV SCH (10:58)
[2023-04-07] MEDS: INSULIN GLARGINE 100 UNITS/ML SUBCUT SCH ×2 (10:59→22:29)
[2023-04-08] VITALS (57 sets, daily range): BP systolic 95–155; BP diastolic 55–88; PULSE 91–116; RESP 20–37; TEMP 97.5–98.3
[2023-04-08] MEDS: IPRATROPIUM/ALBUTEROL 0.5-3(2.5)MG/3ML NEB HHN SCH ×3 (01:04→13:38)
[2023-04-08] MEDS: LORAZEPAM 2MG/ML CPJ IV PRN ×2 (02:45→15:36)
[2023-04-08 05:24] LABS: HEMATOCRIT. 30.7 % (42.0-52.0); HEMOGLOBIN. 9.7 g/dL (14.0-18.0); MEAN CORPUSCULAR HEMOGLOBIN 28.5 pg (28.0-32.0); MEAN CORPUSCULAR VOLUME 90.4 fL (80.0-94.0); MEAN PLATELET VOLUME 9.9 fl (7.4-10.4); PLATELET 106 x1000/uL (130-400); RED BLOOD CELL COUNT 3.39 mill/uL (4.7-6.1); RED CELL DISTRIBUTION WIDTH 17.2 % (11.6-14.6)
[2023-04-08] MEDS: CLONIDINE 0.1MG TABLET PO SCH ×3 (05:44→22:00)
[2023-04-08] MEDS: HYDRALAZINE 20MG/ML VIAL IV SCH ×3 (05:44→22:00)
[2023-04-08] MEDS: BLOOD SUGAR DIAGNOSTIC STRIP TEST SCH ×4 (05:47→21:00)
[2023-04-08] MEDS: CEFEPIME 2,000 MG in DEXT 5% WATER 100 ML IV SCH ×2 (05:49→18:38)
[2023-04-08] MEDS: METHYLPREDNISOLONE SOD SUCC 40MG VIAL IV SCH ×3 (05:49→22:21)
[2023-04-08] MEDS: INSULIN LISPRO 100 UNITS/ML SUBCUT SCH ×4 (07:00→22:20)
[2023-04-08] MEDS: THIAMINE HCL 100MG TABLET NG SCH (09:00)
[2023-04-08 09:10] LABS: PLATELET ESTIMATE SLIGHTLY DECREASED
[2023-04-08] MEDS: FAMOTIDINE 20MG/2ML VIAL IV SCH (09:44)
[2023-04-08] MEDS: FUROSEMIDE 40MG/4ML VIAL IVP SCH (09:44)
[2023-04-08] MEDS: ENOXAPARIN 40MG/0.4ML SYR SUBCUT SCH (09:45)
[2023-04-08] MEDS: VANCOMYCIN 1G PREMIX 200 ML IV SCH (11:00)
[2023-04-08] MEDS: INSULIN GLARGINE 100 UNITS/ML SUBCUT SCH ×2 (11:00→22:21)
[2023-04-09] VITALS (45 sets, daily range): BP systolic 86–150; BP diastolic 45–85; PULSE 82–111; RESP 16–47; TEMP 97.7
[2023-04-09] MEDS ORDERED: MIDAZOLAM 100MG/100ML PMX 100 ML IV PRN (00:30)
[2023-04-09] MEDS ORDERED: MIDAZOLAM HCL 100 MG in SODIUM CHLORIDE 0.9% 100 ML IV PRN (00:45)
[2023-04-09] MEDS: FENTANYL CITRATE/PF 2,500 MCG in SODIUM CHLORIDE 0.9% 200 ML IV PRN (01:00)
[2023-04-09] MEDS: BLOOD SUGAR DIAGNOSTIC STRIP TEST SCH ×4 (05:51→21:31)
[2023-04-09] MEDS: HYDRALAZINE 20MG/ML VIAL IV SCH ×3 (05:51→21:40)
[2023-04-09] MEDS: CLONIDINE 0.1MG TABLET PO SCH ×3 (05:51→21:40)
[2023-04-09] MEDS: METHYLPREDNISOLONE SOD SUCC 40MG VIAL IV SCH ×3 (05:55→21:40)
[2023-04-09] MEDS: CEFEPIME 2,000 MG in DEXT 5% WATER 100 ML IV SCH ×2 (05:55→19:15)
[2023-04-09] MEDS: INSULIN LISPRO 100 UNITS/ML SUBCUT SCH ×4 (06:02→21:39)
[2023-04-09] MEDS: FUROSEMIDE 40MG/4ML VIAL IVP SCH (09:00)
[2023-04-09] MEDS: THIAMINE HCL 100MG TABLET NG SCH (09:01)
[2023-04-09] MEDS: ENOXAPARIN 40MG/0.4ML SYR SUBCUT SCH (09:01)
[2023-04-09] MEDS: INSULIN GLARGINE 100 UNITS/ML SUBCUT SCH ×2 (09:09→21:39)
[2023-04-09 10:23] LABS: BG BASE EXCESS 16.9 mmol/L (-2.0-2.0); BG CARBOXYHEMOGLOBIN 0.9 % (0.5-1.5); BG DEOXYHEMOGLOBIN 3.4 % (0.0-5.0); BG FRACTION INSPIRED OXYGEN 50; BG HCO3 ACT 41.8 mmol/L (22.0-26.0); BG METHEMOGLOBIN 0.3 % (0.0-1.5); BG OXYGEN SATURATION 96.6 % (92.0-98.5); BG OXYHEMOGLOBIN 95.4 % (94.0-97.0); BG PCO2 52.4 mmHg (35.0-45.0); BG PO2 89.1 mmHg (75.0-100.0); BG SAMPLE SITE RIGHT RADIAL; BG TOTAL HEMOGLOBIN 10.3 g/dL (12.0-18.0); BG VENT MODE VENT - AC
[2023-04-09 10:49] LABS: HEMATOCRIT. 26.3 % (42.0-52.0); HEMOGLOBIN. 8.4 g/dL (14.0-18.0); MEAN CORPUSCULAR HEMOGLOBIN 28.3 pg (28.0-32.0); MEAN CORPUSCULAR VOLUME 88.7 fL (80.0-94.0); MEAN PLATELET VOLUME 10.4 fl (7.4-10.4); PLATELET 64 x1000/uL (130-400); RED BLOOD CELL COUNT 2.97 mill/uL (4.7-6.1); RED CELL DISTRIBUTION WIDTH 16.9 % (11.6-14.6)
[2023-04-09 11:02] LABS: CHLORIDE 113 mEq/L (98-107)
[2023-04-09 15:32] LABS: PLATELET ESTIMATE DECREASED
[2023-04-10] VITALS (64 sets, daily range): BP systolic 77–156; BP diastolic 36–82; PULSE 79–97; RESP 8–47; TEMP 97.5–98.4
[2023-04-10] MEDS ORDERED: LEVETIRACETAM 500 MG in SODIUM CHLORIDE 0.9% 100 ML IV SCH ×2
[2023-04-10] MEDS: LEVETIRACETAM 500MG PREMIX 100 ML IV SCH ×2 (03:13→12:34)
[2023-04-10] MEDS: CLONIDINE 0.1MG TABLET PO SCH ×3 (05:32→21:54)
[2023-04-10] MEDS: HYDRALAZINE 20MG/ML VIAL IV SCH ×3 (05:32→21:53)
[2023-04-10] MEDS: BLOOD SUGAR DIAGNOSTIC STRIP TEST SCH ×4 (05:33→21:00)
[2023-04-10] MEDS: CEFEPIME 2,000 MG in DEXT 5% WATER 100 ML IV SCH (05:36)
[2023-04-10] MEDS: METHYLPREDNISOLONE SOD SUCC 40MG VIAL IV SCH ×3 (05:37→22:16)
[2023-04-10] MEDS: INSULIN LISPRO 100 UNITS/ML SUBCUT SCH ×4 (05:38→21:00)
[2023-04-10] MEDS: THIAMINE HCL 100MG TABLET NG SCH (09:00)
[2023-04-10] MEDS: FENTANYL CITRATE/PF 2,500 MCG in SODIUM CHLORIDE 0.9% 200 ML IV PRN (09:12)
[2023-04-10] MEDS: FUROSEMIDE 40MG/4ML VIAL IVP SCH (10:29)
[2023-04-10] MEDS: FAMOTIDINE 20MG/2ML VIAL IV SCH (10:29)
[2023-04-10] MEDS: ENOXAPARIN 40MG/0.4ML SYR SUBCUT SCH (10:29)
[2023-04-10] MEDS: INSULIN GLARGINE 100 UNITS/ML SUBCUT SCH ×2 (10:30→22:17)
[2023-04-10 13:07] LABS: BG BASE EXCESS 7.3 mmol/L (-2.0-2.0); BG CARBOXYHEMOGLOBIN 0.2 % (0.5-1.5); BG DEOXYHEMOGLOBIN 5.7 % (0.0-5.0); BG FRACTION INSPIRED OXYGEN 50; BG METHEMOGLOBIN 0.3 % (0.0-1.5); BG OXYGEN SATURATION 94.3 % (92.0-98.5); BG OXYHEMOGLOBIN 93.8 % (94.0-97.0); BG PCO2 46.4 mmHg (35.0-45.0); BG PH 7.457 (7.350-7.450); BG PO2 75.7 mmHg (75.0-100.0); BG SAMPLE SITE LEFT RADIAL; BG VENT MODE VENT - AC
[2023-04-10] MEDS: MEROPENEM 1,000 MG in SODIUM CHLORIDE 0.9% 100 ML IV SCH (16:50)
[2023-04-11] VITALS (90 sets, daily range): BP systolic 77–136; BP diastolic 46–80; PULSE 80–96; RESP 12–59; TEMP 96.3–99.1
[2023-04-11] MEDS: LEVETIRACETAM 500MG PREMIX 100 ML IV SCH ×2 (01:56→13:00)
[2023-04-11] MEDS: HYDRALAZINE 20MG/ML VIAL IV SCH ×3 (04:07→21:12)
[2023-04-11] MEDS: CLONIDINE 0.1MG TABLET PO SCH ×3 (04:08→21:13)
[2023-04-11] MEDS: MEROPENEM 1,000 MG in SODIUM CHLORIDE 0.9% 100 ML IV SCH ×2 (04:15→16:26)
[2023-04-11] MEDS: INSULIN LISPRO 100 UNITS/ML SUBCUT SCH ×4 (05:14→21:00)
[2023-04-11] MEDS: BLOOD SUGAR DIAGNOSTIC STRIP TEST SCH ×4 (05:14→21:00)
[2023-04-11] MEDS: METHYLPREDNISOLONE SOD SUCC 40MG VIAL IV SCH ×3 (05:15→21:14)
[2023-04-11] MEDS: THIAMINE HCL 100MG TABLET NG SCH (09:15)
[2023-04-11] MEDS: INSULIN GLARGINE 100 UNITS/ML SUBCUT SCH ×2 (10:00→21:14)
[2023-04-11] MEDS: DEXTROSE 5% WATER 1,000 ML IV SCH (12:00)
[2023-04-11] MEDS: FENTANYL CITRATE/PF 2,500 MCG in SODIUM CHLORIDE 0.9% 200 ML IV PRN (18:54)
[2023-04-12] VITALS (59 sets, daily range): BP systolic 44–139; BP diastolic 24–79; PULSE 63–105; RESP 6–102; TEMP 97–98.3
[2023-04-12] MEDS: LEVETIRACETAM 500MG PREMIX 100 ML IV SCH (01:37)
[2023-04-12 05:27] LABS: MEAN CORPUSCULAR HEMOGLOBIN 28.5 pg (28.0-32.0); MEAN CORPUSCULAR VOLUME 89.5 fL (80.0-94.0); MEAN PLATELET VOLUME 12.3 fl (7.4-10.4); PLATELET 62 x1000/uL (130-400); RED BLOOD CELL COUNT 2.79 mill/uL (4.7-6.1); RED CELL DISTRIBUTION WIDTH 17.2 % (11.6-14.6)
[2023-04-12] MEDS: BLOOD SUGAR DIAGNOSTIC STRIP TEST SCH (05:34)
[2023-04-12] MEDS: CLONIDINE 0.1MG TABLET PO SCH (06:00)
[2023-04-12] MEDS: HYDRALAZINE 20MG/ML VIAL IV SCH (06:00)
[2023-04-12] MEDS: MEROPENEM 1,000 MG in SODIUM CHLORIDE 0.9% 100 ML IV SCH (06:01)
[2023-04-12] MEDS: INSULIN LISPRO 100 UNITS/ML SUBCUT SCH (06:02)
[2023-04-12] MEDS: METHYLPREDNISOLONE SOD SUCC 40MG VIAL IV SCH (06:06)
[2023-04-12 06:41] LABS: BG BASE EXCESS 6.1 mmol/L (-2.0-2.0); BG DEOXYHEMOGLOBIN 21.7 % (0.0-5.0); BG FRACTION INSPIRED OXYGEN 100; BG METHEMOGLOBIN 0.3 % (0.0-1.5); BG PCO2 67.5 mmHg (35.0-45.0); BG SAMPLE SITE LEFT RADIAL; BG TOTAL HEMOGLOBIN 11.7 g/dL (12.0-18.0); BG VENT MODE VENT - AC
[2023-04-12] MEDS: FAMOTIDINE 20MG/2ML VIAL IV SCH (09:32)
[2023-04-12] MEDS: DOCUSATE SODIUM SUGAR FREE 100MG/10ML UDC PO PRN (09:32)
[2023-04-12] MEDS: THIAMINE HCL 100MG TABLET NG SCH (09:32)
[2023-04-12] MEDS: DEXTROSE 5% WATER 1,000 ML IV SCH (09:33)
[2023-04-12] MEDS: INSULIN GLARGINE 100 UNITS/ML SUBCUT SCH (10:56)
[2023-04-12] MEDS ORDERED: VANCOMYCIN 500MG PREMIX 100 ML IV NR (12:00)
[2023-04-12 15:18] LABS: PLATELET ESTIMATE DECREASED
== END 2023-04-12 15:00 | DRG 870 ==
LOC: ER 17:52 → EDUNIT# 18:55 → 5EST 18:55 → ENRESERV 20:23 → MICUSO 03-31 07:58
PROVIDERS: ADMIT Internal Medicine; ATTEND Internal Medicine
PROC: 5A09457 Assistance with Respiratory Ventilation, 24-96 Consecutive Hours, Continuous Positive Airway Pressure (ICD-10-PCS; 2023-03-26)
PROC: 5A1955Z Respiratory Ventilation, Greater than 96 Consecutive Hours (ICD-10-PCS; 2023-03-31)
PROC: 0BH18EZ Insertion of Endotracheal Airway into Trachea, Via Natural or Artificial Opening Endoscopic (ICD-10-PCS; 2023-03-31)
PROC: 5A09357 Assistance with Respiratory Ventilation, Less than 24 Consecutive Hours, Continuous Positive Airway Pressure (ICD-10-PCS; 2023-03-31)
PROC: 02HV33Z Insertion of Infusion Device into Superior Vena Cava, Percutaneous Approach (ICD-10-PCS; principal; 2023-04-03)
PROC: B548ZZA Ultrasonography of Superior Vena Cava, Guidance (ICD-10-PCS; 2023-04-03)
DX: A41.9 Sepsis, unspecified organism (principal); J18.9 Pneumonia, unspecified organism; J96.22 Acute and chronic respiratory failure with hypercapnia; J96.21 Acute and chronic respiratory failure with hypoxia; N17.0 Acute kidney failure with tubular necrosis; J44.1 Chronic obstructive pulmonary disease with (acute) exacerbation; E87.29 Other acidosis; N39.0 Urinary tract infection, site not specified; Z99.11 Dependence on respirator [ventilator] status; G93.40 Encephalopathy, unspecified; J44.0 Chronic obstructive pulmonary disease with (acute) lower respiratory infection; D64.9 Anemia, unspecified; Z20.822 Contact with and (suspected) exposure to COVID-19; I10 Essential (primary) hypertension; E87.8 Other disorders of electrolyte and fluid balance, not elsewhere classified; E78.5 Hyperlipidemia, unspecified; E88.09 Other disorders of plasma-protein metabolism, not elsewhere classified; R73.9 Hyperglycemia, unspecified; R56.9 Unspecified convulsions; R65.20 Severe sepsis without septic shock; Z85.01 Personal history of malignant neoplasm of esophagus; Z99.81 Dependence on supplemental oxygen; Z87.891 Personal history of nicotine dependence; Z86.718 Personal history of other venous thrombosis and embolism
CPT/HCPCS: 36415; 36573; 36600; 71045; 71250; 76770; 78580; 80048; 80053; 80061; 80202; 81003; 82375; 82550; 82553; 82805; 82962; 83036; 83605; 83880; 84132; 84145; 84484; 85025; 85027; 85379; 86803; 87070; 87077; 87186; 87340; 87426; 88108; 88312; 93005; 93970; 94003; 94640; 94644; 94660; 97162; 99291; A6261; C1725; C9113; C9803; J0360; J0456; J0692; J1650; J1815; J1940; J1953; J2060; J2185; J2250; J2370; J2543; J2920; J2930; J3010; J3370; J3490; J7030; J7050; J7060; J7070; J7608; A4315